=== PATIENT | female | born 1985 | race Caucasian/White ===

== ENCOUNTER 2017-09-05 10:45 | Day surgery (SDC) | payer MEDICAID ==
[~2017-09-05 10:45] MED LIST: RINGER'S SOLUTION,LACTATED 1,000 ML IV PRN
[2017-09-05] MEDS ORDERED: RINGER'S SOLUTION,LACTATED 1,000 ML IV ONE ×2 (11:46→16:00)
[2017-09-05] MEDS ORDERED: ceFAZolin SODIUM 1 GM VIAL IV ONE (15:45)
[2017-09-05] MEDS ORDERED: ISOPROPYL ALCOHOL 480 APPL BTL MC ONE (15:50)
[2017-09-05] MEDS ORDERED: BUPIVACAINE HCL 50 ML VIAL IJ ONE ×2 (15:50)
[2017-09-05] MEDS ORDERED: HYDROmorphone HCL 2 MG TABLET PO PRN (17:05)
[2017-09-05] MEDS ORDERED: RINGER'S SOLUTION,LACTATED 1,000 ML IV PRN (17:05)
[2017-09-05] MEDS ORDERED: HYDROmorphone HCL 4 MG/ML DISP.SYRIN IV ONE (17:15)
[2017-09-05] MEDS ORDERED: HYDROmorphone HCL 1 MG/ML DISP.SYRIN IV PRN (17:27)
--- NOTE | 2017-09-05 18:45 | OR ---
Operative Report - Dictated Report Narrative: DATE OF OPERATION: 09/05/2017 PREOPERATIVE DIAGNOSIS: Cholelithiasis and cholecystitis POSTOPERATIVE DIAGNOSIS: Cholelithiasis and cholecystitis (pathology pending) OPERATION: Laparoscopic cholecystectomy SURGEON: BETITO Sams MD ANESTHESIA Gen. endotracheal Mumtaz Henson CRNA INDICATIONS FOR PROCEDURE: The patient is a 32-year-old female referred by Tammy Brasher NP. The patient has had 2 severe attacks of right upper quadrant and back pain. She has ultrasound findings of cholelithiasis and cholecystitis. FINDINGS: Cholelithiasis and cholecystitis (pathology pending) NARRATIVE OF PROCEDURE: The patient was identified preoperatively. Prior to the administration of anesthetic a multidisciplinary timeout observed. With the patient in the supine position, SCDs were placed, 2 g of intravenous Ancef administered, and general endotracheal anesthetic administered. The patient's abdomen was prepped with Betadine solution and a generous operating field outlined with 4 sterile towels. The remainder the patient was covered with a sterile disposable drape. An infraumbilical skin incision was made. Dissection was carried along the umbilical stalk until the fascia of the linea alba was encountered. This was incised. The peritoneum was then elevated and incised to allow entry into the abdomen under direct vision. A Hussan cannula was placed, and the abdomen insufflated with CO2. The laparoscopic camera was introduced and the abdomen briefly explored. Those portions of the liver, stomach, colon, and greater omentum visualized appeared normal. The gallbladder was not immediately visible. Next under direct vision 3 additional working ports were inserted through separate skin incisions, one in the subxiphoid, one in the right upper quadrant, and one in the right flank. The hepatic flexure of the colon was retracted inferiorly and the apex of the gallbladder identified. A photograph was taken. The apex of the gallbladder was grasped and retracted cephalad. The expected location of the cystic duct was identified. The cystic duct was dissected free for a sufficient distance for confident identification. It was doubly clipped and divided. The cystic artery was identified doubly clipped and divided. The gallbladder was then removed from the liver bed by retrograde electrocautery dissection. Prior to severing the last attachments of the gallbladder the liver bed was inspected and found to be hemostatic with no evidence of bile leak. The previously placed clips were seen to be intact. The right upper quadrant was suctioned clean. The last attachments of the gallbladder were divided. It was placed in an Endobag and parked in the right upper quadrant. The smaller working ports were withdrawn under direct vision to ensure entry site hemostasis. The gallbladder was removed in conjunction with the Hussan cannula. The pneumoperitoneum was allowed to escape, and after receiving a correct sponge needle and instrument count attention was turned to closing the abdomen. The fascia and peritoneum at the umbilicus were approximated with interrupted sutures of #1 Vicryl. Skin incisions were approximated with interrupted vertical mattress sutures of 4-0 nylon. The operative sites were washed and dried. Dressings of Bactroban ointment and large Band-Aids were applied to the small port sites. The umbilical incision was dressed with Bactroban ointment, 2 x 2, large Band-Aid and Medipore tape. The operative procedure was terminated at this point. The patient tolerated the anesthetic and procedure well without complication. There was no measurable blood loss. The gallbladder was submitted to pathology. 0.5% Marcaine with epinephrine was used for local anesthetic infiltration. The patient was transferred to the recovery room awake, extubated, and in stable condition. The patient remained stable throughout a period of postoperative observation. She was able to tolerate po intake and was up without assistance. Her in was controlled with po Dilaudid. Her dressings remained dry. I reviewed the operative findings with her and her parents and she was given copies of the photographs which appear in the medical record. The patient was discharged home with instructions not to lift and not to drive. She is to leave the current dressing dry and intact for 48 hours, but then may shower and change the dressing daily or as needed. She was given phone numbers to call if necessary for signs of wound infection or hematoma. The patient was given a prescription for Dilaudid 2 mg #28 1 po Q6hrs prn pain. A return office appointment was made for 09/13/2017. Reviewed and electronically signed
[2017-09-05 23:51] VITALS: BP 121/77
== END 2017-09-05 20:15 | disposition home or self-care (01) ==
LOC: AMB 10:45
PROVIDERS: ATTEND Surgery
PROC: 0FT44ZZ Resection of Gallbladder, Percutaneous Endoscopic Approach (ICD-10-PCS; principal; 2017-09-05 12:00)
DX: K80.10 Calculus of gallbladder with chronic cholecystitis without obstruction (principal); Z68.28 Body mass index [BMI] 28.0-28.9, adult